=== PATIENT | female | born 1970 | race Caucasian/White ===

== ENCOUNTER → 2017-03-26 | Outpatient (CLI) | payer BC ==
[2017-03-26 14:20] LABS: BLOOD UREA NITROGEN 10 mg/dl (7-18); BUN/CREATININE RATIO 12.1 (10-20); CARBON DIOXIDE 23 mmol/L (21-32); CHLORIDE 104 mmol/L (98-107); CREATININE 0.86 mg/dl (0.60-1.20); GLUCOSE 138 mg/dl (70-99); POTASSIUM 4.3 mmol/L (3.5-5.1); SODIUM 138 mmol/L (136-145)
[2017-03-26 14:22] LABS: CHOLESTEROL 213 mg/dl (0-200); CHOLESTEROL/HDL RATIO 4.3; HDL CHOLESTEROL 49 mg/dl; TRIGLYCERIDES 240 mg/dl (0-150); VERY LOW DENSITY LIPOPROT CALC 48 mg/dl
== END | disposition home or self-care (01) ==
LOC: C.LABPVFM 10:16
PROVIDERS: ATTEND Nurse Practitioner
DX: C68.0 Malignant neoplasm of urethra (principal); E66.9 Obesity, unspecified; Z13.220 Encounter for screening for lipoid disorders

== ENCOUNTER 2020-07-25 15:36 | Inpatient (IN) ==
--- NOTE | 2020-07-25 15:57 | Emergency Department Note ---
History of Present Illness General Chief complaint: Toe Injury/Pain Stated complaint: INFECTED MIDDLE TOE ON RIGHT FOOT Time Seen by Provider: 07/25/20 15:44 History of Present Illness Maximum Pain Intensity: 8 This is a 49-year-old otherwise healthy female that presents to the emergency department via private vehicle with complaints "infected middle toe and right foot". The patient notes that about 6 weeks ago she injured the right third toe noting that the toenail was curled and created a break in the integument to the distalmost aspect of the right third digit. She states that she trimmed the area and noted that about 3 days ago erythema began within the toe. She then notes that it was quite painful particular with walking and pressure. Then starting this past the erythema began and then yesterday presented to [facility] where she notes that an x-ray was performed and she was prescribed antibiotics. These were doxycycline and Augmentin. She has had 3 doses of both so far. She is now concerned because today there is erythema tracking proximal from the toe into the foot and now into the right aguiar. At rest pain is a 0 but with walking pain is an 8/10. She denies any other pertinent past medical history, surgeries or allergies. In addition, the patient notes that she is prescribed metformin but has not been taking this as the prescription ran out and secondary to COVID-19 pandemic has not had a follow-up. Home Medications Medication Instructions Recorded Confirmed Type No Known Home Medications 07/25/20 07/25/20 History Allergies Allergy/AdvReac Type Severity Reaction Status Date / Time No Known Drug Allergies Allergy Unknown Verified 07/25/20 16:55 Past Med/Surg History Medical History Type 2 diabetes mellitus Surgical History History of conization of cervix Status post hysteroscopic ablation of endometrium Family History Mother Dyslipidemia Heart disease Hypertension Father Dyslipidemia Heart disease Hypertension Myocardial infarction Other Breast cancer Colorectal cancer Depression Diabetes Denies family history of Ovarian cancer Social History Smoking Status: Never smoker Hx Alcohol Use: No Hx Substance Use: No Preferred Language: [place] Communication Ability: Effective Tobacco Dipper Required: No Beliefs That Will Affect Care: None marital status: Current Living Situation: Spouse current occupational status: employed Feels Safe at Home: Yes Safety Concerns: Feels Safe At This Time caffeine: Yes during the past year weight has: remained stable Dental Care, Regularly: No Seatbelt Use: always Sunscreen Use: Yes Assistive Devices: Glasses Review of Systems A total of 10 systems reviewed and were otherwise negative Physical Exam Vital Signs Vital Signs - 24 hr 07/25/20 15:39 07/25/20 17:51 07/25/20 19:29 Temperature 36.3 C L Temperature Source Temporal Artery Scan Pulse Rate 110 H Pulse Rate [Right Finger] 88 77 Respiratory Rate 20 19 19 Respiratory Effort / Characteristics Non-Labored Non-Labored Respiratory Depth Normal Normal Blood Pressure 198/105 H Blood Pressure [Right Arm] 201/107 H 198/118 H Blood Pressure Mean 136 Blood Pressure Mean [Right Arm] 138 144 Blood Pressure Position [Right Arm] Sitting Pulse Oximetry 98 98 98 Oxygen Delivery Method Room Air Room Air Room Air Sepsis Recent Fever Within 48 Hours No Sepsis New/Unexplained Change in Mental Status No Sepsis Action Taken by Nursing No Action Required VITAL SIGNS - Vital signs and nursing notes were reviewed. Hypertensive, tachycardic, otherwise stable. GENERAL -49-year-old female appearing her stated age who is in no acute distress. Communicates well with provider and answers questions appropriately. SKIN - R 3rd toe erythema, and edema diffusely. Erythema/lymphangitic streaking tracking proximally into the right anterior aguiar. LUNGS - Chest wall symmetric without accessory muscle use, intercostals retractions, or central cyanosis. Normal vesicular breath sounds CTA B/L. No wheezes, rales, or rhonchi appreciated. CARDIAC - RRR with S1/S2. No murmur, rubs, or gallops appreciated. EXTREMITIES - No clubbing or peripheral cyanosis. +5/5 strength noted in UE/LE bilaterally. NEUROLOGIC - Cranial nerves II through XII grossly intact. PSYCH - A&O, and cooperates fully with examiner. Pt is very pleasant and interacts well with examiner. Course Administered Medications Acetaminophen (Acetaminophen 325 Mg Tab) 650 mg PO Q6H PRN PRN Reason: Pain & Pre PT Stop: 08/25/20 01:35 Last Admin: 07/26/20 04:58 Dose: 650 mg Documented by: [id number] Piperacillin Sod/Tazobactam (Sod 4.5 gm/ Dextrose) 120 mls @ 30 mls/hr IV Q8H [facility]; Protocol Stop: 08/01/20 21:59 Last Admin: 07/26/20 14:29 Dose: 30 mls/hr Documented by: [id number] Infusion: 07/26/20 09:50 Dose: 0 mls/hr Documented by: [id number] Admin: 07/26/20 05:50 Dose: 30 mls/hr Documented by: [id number] Infusion: 07/26/20 02:12 Dose: 0 mls/hr Documented by: [id number] Admin: 07/25/20 22:12 Dose: 30 mls/hr Documented by: [id number] Insulin Aspart (Insulin Aspart 100 Units/Ml 3 Ml Pen) 0 units SC ACHS [facility] Stop: 08/24/20 21:59 Last Admin: 07/26/20 13:02 Dose: 3 units Documented by: [id number] Cosigned by: [id number] Admin: 07/26/20 08:34 Dose: 5 units Documented by: [id number] Cosigned by: [id number] Admin: 07/25/20 22:08 Dose: Not Given Documented by: [id number] Cosigned by: [id number] Lisinopril (Lisinopril 20 Mg Tab) [facility] [place]: 08/25/20 08:59 Last Admin: 07/26/20 08:33 Dose: 20 mg Documented by: [id number] Tramadol HCl (Tramadol Hcl 50 Mg Tablet) 100 mg PO Q4H PRN PRN Reason: SEVERE Pain (7,8,9,10) Stop: 08/25/20 01:35 Last Admin: 07/26/20 05:51 Dose: 100 mg Documented by: [id number] Admin: 07/26/20 01:50 Dose: 100 mg Documented by: [id number] Discontinued Medications Daptomycin 350 mg/ Syringe 7 mls @ 3.5 mls/min IV NOW ONE; Protocol Stop: 07/25/20 17:08 Last Admin: 07/25/20 17:49 Dose: 3.5 mls/min Documented by: [id number] Piperacillin Sod/Tazobactam Sod (Zosyn) 4.5 gm in 120 mls @ 240 mls/hr IV NOW ONE Stop: 07/25/20 17:36 Last Infusion: 07/25/20 17:53 Dose: 0 mls/hr Documented by: [id number] Admin: 07/25/20 17:12 Dose: 240 mls/hr Documented by: [id number] Sodium Chloride (Nss 1000ml) 1,000 mls @ 999 mls/hr IV .Q1H1M [id number] Stop: 07/25/20 18:30 Last Infusion: 07/25/20 19:45 Dose: 0 mls/hr Documented by: [id number] Admin: 07/25/20 17:49 Dose: 999 mls/hr Documented by: [id number] Medical Decision Making Laboratory Data Result diagrams: 07/26/20 05:56 07/26/20 05:56 Lab Results 07/25/20 07/25/20 07/25/20 Range/Units 16:10 16:10 16:10 WBC 9.72 (4.8-10.8) K/uL RBC 4.45 (4.2-5.4) M/uL Hgb 14.1 (12.0-16.0) g/dL Hct 41.9 (37-47) % MCV 94.2 (80-100) fL MCH 31.7 (25-34) pg MCHC 33.7 (32-36) g/dL RDW Std Deviation 48.4 H (36.4-46.3) fL RDW Coeff of Manjeet 13.9 (11.5-14.5) % Plt Count 202 (130-400) K/uL MPV 10.6 H (7.4-10.4) fL Immature Gran % (Auto) 0.2 % Neut % (Auto) 75.3 % Lymph % (Auto) 18.5 % Caswell % (Auto) 5.5 % Eos % (Auto) 0.4 % Baso % (Auto) 0.1 % Neut # (Auto) 7.32 H (1.4-6.5) K/uL Lymph # (Auto) 1.80 (1.2-3.4) K/uL Caswell # (Auto) 0.53 (0.11-0.59) K/uL Eos # (Auto) 0.04 (0-0.5) K/uL Baso # (Auto) 0.01 (0-0.2) K/uL Immature Gran # (Auto) 0.02 (0.00-0.02) K/uL ESR (0-21) mm/hr Sodium 135 L (136-145) mmol/L Potassium 4.0 (3.5-5.1) mmol/L Chloride 101 (98-107) mmol/L Carbon Dioxide 26 (21-32) mmol/L Anion Gap 8.0 (3-11) BUN 11 (7-18) mg/dl Creatinine 0.92 (0.6-1.2) mg/dl Est Cr Clr Drug Dosing 97.1 ml/min Est GFR ( Amer) 83.6 Est GFR (Non-Af Amer) 72.1 BUN/Creatinine Ratio 12.3 (10-20) Glucose 266 H (70-99) mg/dl Lactate 2.4 H* (0.4-2.0) mmol/L Calcium 9.4 (8.5-10.1) mg/dl Total Bilirubin 0.5 (0.2-1) mg/dl AST 24 (15-37) U/L ALT 36 (12-78) U/L Alkaline Phosphatase 127 H (45-117) U/L C-Reactive Protein 5.43 H (0-0.29) mg/dl Total Protein 7.8 (6.4-8.2) gm/dl Albumin 3.5 (3.4-5.0) gm/dl Globulin 4.3 H (2.5-4.0) gm/dl Albumin/Globulin Ratio 0.8 L (0.9-2) Procalcitonin (0-0.5) ng/ml COVID-19 Eval Order SARS-CoV-2, RNA, NAAT (NEGATIVE) 07/25/20 07/25/20 07/25/20 Range/Units 16:10 16:10 17:45 WBC (4.8-10.8) K/uL RBC (4.2-5.4) M/uL Hgb (12.0-16.0) g/dL Hct (37-47) % MCV (80-100) fL MCH (25-34) pg MCHC (32-36) g/dL RDW Std Deviation (36.4-46.3) fL RDW Coeff of Manjeet (11.5-14.5) % Plt Count (130-400) K/uL MPV (7.4-10.4) fL Immature Gran % (Auto) % Neut % (Auto) % Lymph % (Auto) % Caswell % (Auto) % Eos % (Auto) % Baso % (Auto) % Neut # (Auto) (1.4-6.5) K/uL Lymph # (Auto) (1.2-3.4) K/uL Caswell # (Auto) (0.11-0.59) K/uL Eos # (Auto) (0-0.5) K/uL Baso # (Auto) (0-0.2) K/uL Immature Gran # (Auto) (0.00-0.02) K/uL ESR 37 H (0-21) mm/hr Sodium (136-145) mmol/L Potassium (3.5-5.1) mmol/L Chloride (98-107) mmol/L Carbon Dioxide (21-32) mmol/L Anion Gap (3-11) BUN (7-18) mg/dl Creatinine (0.6-1.2) mg/dl Est Cr Clr Drug Dosing ml/min Est GFR ( Amer) Est GFR (Non-Af Amer) BUN/Creatinine Ratio (10-20) Glucose (70-99) mg/dl Lactate (0.4-2.0) mmol/L Calcium (8.5-10.1) mg/dl Total Bilirubin (0.2-1) mg/dl AST (15-37) U/L ALT (12-78) U/L Alkaline Phosphatase (45-117) U/L C-Reactive Protein (0-0.29) mg/dl Total Protein (6.4-8.2) gm/dl Albumin (3.4-5.0) gm/dl Globulin (2.5-4.0) gm/dl Albumin/Globulin Ratio (0.9-2) Procalcitonin 0.06 (0-0.5) ng/ml COVID-19 Eval [facility] SARS-CoV-2, RNA, NAAT (NEGATIVE) 07/25/20 07/25/20 Range/Units 17:45 17:50 WBC (4.8-10.8) K/uL RBC (4.2-5.4) M/uL Hgb (12.0-16.0) g/dL Hct (37-47) % MCV (80-100) fL MCH (25-34) pg MCHC (32-36) g/dL RDW Std Deviation (36.4-46.3) fL RDW Coeff of Manjeet (11.5-14.5) % Plt Count (130-400) K/uL MPV (7.4-10.4) fL Immature Gran % (Auto) % Neut % (Auto) % Lymph % (Auto) % Caswell % (Auto) % Eos % (Auto) % Baso % (Auto) % Neut # (Auto) (1.4-6.5) K/uL Lymph # (Auto) (1.2-3.4) K/uL Caswell # (Auto) (0.11-0.59) K/uL Eos # (Auto) (0-0.5) K/uL Baso # (Auto) (0-0.2) K/uL Immature Gran # (Auto) (0.00-0.02) K/uL ESR (0-21) mm/hr Sodium (136-145) mmol/L Potassium (3.5-5.1) mmol/L Chloride (98-107) mmol/L Carbon Dioxide (21-32) mmol/L Anion Gap (3-11) BUN (7-18) mg/dl Creatinine (0.6-1.2) mg/dl Est Cr Clr Drug Dosing ml/min Est GFR ( Amer) Est GFR (Non-Af Amer) BUN/Creatinine Ratio (10-20) Glucose (70-99) mg/dl Lactate 2.1 H* (0.4-2.0) mmol/L Calcium (8.5-10.1) mg/dl Total Bilirubin (0.2-1) mg/dl AST (15-37) U/L ALT (12-78) U/L Alkaline Phosphatase (45-117) U/L C-Reactive Protein (0-0.29) mg/dl Total Protein (6.4-8.2) gm/dl Albumin (3.4-5.0) gm/dl Globulin (2.5-4.0) gm/dl Albumin/Globulin Ratio (0.9-2) Procalcitonin (0-0.5) ng/ml COVID-19 Eval Order SARS-CoV-2, RNA, NAAT NEGATIVE (NEGATIVE) Imaging Data Radiologist's Impression: Right third toe 4 views CLINICAL HISTORY: R 3rd toe infection COMPARISON: None. DISCUSSION: No acute fractures are visualized. There is no gas within the soft tissues. There is no conventional radiographic evidence of acute osteomyelitis. There is mild soft tissue edema. IMPRESSION: 1. No fractures or dislocations identified 2. No conventional radiographic evidence of acute osteomyelitis. ACT 112: Negative or not required by law. Electronically signed by: Bandar Pinto M.D. 07/25/2020 5:43 PM MDM Narrative Patient was seen and evaluated as above in room a11b. Review was performed of nursing notes and vital signs. After obtaining a thorough history and physical examination the above work up was performed. Patient presents to us today with what appears to be right third toe cellulitis. Unfortunately it is now tracking proximally into the foot and anterior aguiar in regard to lymphangitic streaking. Options of care were discussed with the patient. IV access was established. Labs were drawn. White blood cell count within normal limits. No anemia. There is mild neutrophil elevation at 7.32. There is ESR and CRP elevation noted. There is also hyperglycemia with glucose of 266. Pro-Hermann within normal limits. Covid testing negative for suspected admission requirement. Given the progression of symptoms, now with lymphangitic streaking it is felt that further evaluation and management is warranted in the inpatient setting. She has been on antibiotics for total of 3 doses thus far of each. I ordered empiric antibiotics to include that of Zosyn and daptomycin. Given the likely etiology of this secondary to a wound on the distalmost aspect of the right third toe in the setting of hyperglycemia I did find it reasonable to discuss this with staff life manager, Dr. Ang. He will see the patient here while she is admitted. In addition to the above work-up, adding an x-ray was recommended and this was ordered and results are as above. While in the department, I personally reevaluated the patient and she was resting comfortably. Pt.made aware of results and will be admitted by the medicine team for further evaluation and management. Pt. happy with plan of care. In the evaluation and treatment of this patient the following differential diagnoses were entertained: Cellulitis, necrotizing fasciitis, gout, hyperglycemia, among others. Impression & Plan Cellulitis of toe of right foot, Hyperglycemia Discharge Plan Visit Data Chief Complaint: Toe Injury/Pain Stated Complaint: INFECTED MIDDLE TOE ON RIGHT FOOT ED Provider: Raul Perez ED Midlevel Provider: David Johnson Discharge Problem: Cellulitis of toe of right foot, Hyperglycemia Patient Disposition: Admitted As Inpatient Discharge Instructions Interventions: ED Discharge Assessment Last Done: 07/25/20 20:45
[2020-07-25 16:22] LABS: Basophils # (auto) 0.01 K/uL (0-0.2); Basophils % (auto) 0.1 %; Eosinophils # (auto) 0.04 K/uL (0-0.5); Eosinophils % (auto) 0.4 %; Hematocrit (blood only) 41.9 % (37-47); Hemoglobin 14.1 g/dL (12.0-16.0); Immature Granulocytes # (auto) 0.02 K/uL (0.00-0.02); Immature Granulocytes % (auto) 0.2 %; Lymphocytes % (auto) 18.5 %; Mean Corpuscular Hemoglobin 31.7 pg (25-34); Mean Corpuscular Hgb Conc 33.7 g/dL (32-36); Mean Corpuscular Volume 94.2 fL (80-100); Mean Platelet Volume 10.6 fL (7.4-10.4); Monocytes # (auto) 0.53 K/uL (0.11-0.59); Monocytes % (auto) 5.5 %; Neutrophils # (auto) 7.32 K/uL (1.4-6.5); Neutrophils % (auto) 75.3 %; Platelet Count 202 K/uL (130-400); RDW Coefficient of Variation 13.9 % (11.5-14.5); RDW Standard Deviation 48.4 fL (36.4-46.3); Red Blood Count 4.45 M/uL (4.2-5.4); White Blood Count 9.72 K/uL (4.8-10.8)
[2020-07-25 16:37] LABS: Albumin Level 3.5 gm/dl (3.4-5.0); BUN Creatinine Ratio 12.3 (10-20); Calcium 9.4 mg/dl (8.5-10.1); Creatinine Clr Calc Pharmacy 97.1 ml/min; Est GFR (African American) 83.6; Est GFR (Non-African American) 72.1
[2020-07-25 16:40] LABS: Albumin Globulin Ratio 0.8 (0.9-2); Bilirubin,Total 0.5 mg/dl (0.2-1); C Reactive Protein 5.43 mg/dl (0-0.29); Globulin 4.3 gm/dl (2.5-4.0); Total Protein 7.8 gm/dl (6.4-8.2)
[2020-07-25] MEDS ORDERED: DAPTOmycin 350 MG in SYRINGE 0 ML IV ONE (17:07)
[2020-07-25] MEDS ORDERED: PIPERACILL/TAZOBAC CONSULT ACTIVE PRN (17:07)
[2020-07-25] MEDS ORDERED: PIPERACILLIN/TAZOBACTAM 4.5 GM/120 ML BAG IV ONE (17:07)
[2020-07-25] MEDS ORDERED: SODIUM CHLORIDE 0.9% 1000ML 1,000 ML IV SCH (17:30)
--- NOTE | 2020-07-25 17:45 | XRay Report ---
Right third toe 4 views CLINICAL HISTORY: R 3rd toe infection COMPARISON: None. DISCUSSION: No acute fractures are visualized. There is no gas within the soft tissues. There is no c onventional radiographic evidence of acute osteomyelitis. There is mild soft tissue edema. IMPRESSION: 1. No fractures or dislocations identified 2. No conventional radiographic evidence of acute osteomyelitis. ACT 112: Negative or not required by law. Electronically signed by: Bandar Pinto M.D. 07/25/2020 5:43 PM
--- NOTE | 2020-07-25 18:27 | History & Physical Report ---
Date of Service July 25, 2020 Assessment & Plan (1) Diabetic foot ulcer associated with type 2 diabetes mellitus: Infected diabetic foot ulcer - Continue with Daptomycin and Zosyn - Cultures pending - Biomarkers for antibiotic weaning - no overt signs of systemic sepsis. (2) Vitamin D deficiency: No acute needs - Patient only on supplementation during winter months, and skipped supplementation this year due to COVID - Vitamin D level in morning. (3) Hirsutism: No acute needs History of Present Illness Primary Care Provider: YANI Rousseau 49 YOF with past medical history of strep pharyngitis, Hirsutism, Vit D deficiency, DMII, hemorrhoids. Patient comes to the emergency room for right 3rd toe infection. Patient states that about 6 weeks ago she noted that her toenail was grown over and digging into the top of her toe and created an ulcer, she clipped the toenail and the ulcer. On Sun, she noted that her toe started to get red and painful over the ulceration, the redness and swelling to the toe increased and stared to track caudally yesterday. She went to [facility] had X-ray performed and was given oral antibiotics (doxy and Augmentin). She denies fevers or chills or other symptoms of systemic infection. The redness tracks to about ankle and is just center of the foot. The 3rd toe itself is moderately erythematous but only painful over the ulceration and when putting pressure directly on it. Patient will be brought in for IV antibiotics, blood culture and biomarkers. Allergies Allergy/AdvReac Type Severity Reaction Status Date / Time No Known Drug Allergies Allergy Unknown Verified 07/25/20 16:55 Home Medications Medication Instructions Recorded Confirmed Type No Known Home Medications 07/25/20 07/25/20 History Past Med/Surg History Medical History Type 2 diabetes mellitus Surgical History History of conization of cervix Status post hysteroscopic ablation of endometrium Family History (Updated 07/25/20 @ 18:17 by YANI Pennington) Mother Dyslipidemia Heart disease Hypertension Father Dyslipidemia Heart disease Hypertension Myocardial infarction Other Breast cancer Colorectal cancer Depression Diabetes Denies family history of Ovarian cancer Social History Smoking Status: Never smoker Hx Alcohol Use: No Hx Substance Use: No Preferred Language: Citizen Of [place] marital status: Current Living Situation: Spouse current occupational status: employed Feels Safe at Home: Yes caffeine: Yes during the past year weight has: remained stable Dental Care, Regularly: No Seatbelt Use: always Sunscreen Use: Yes Review of Systems Review of Systems: REVIEW OF SYSTEMS: Constitutional: No fever, sweats or chills Eyes: No diplopia, no worsening or blurred vision ENT: normal hearing, no trouble swallowing Respiratory: No cough, sputum, dyspnea at rest or on exertion Cardiovascular: No chest pain, tightness or palpitations Abdomen: No pain, nausea, vomiting, diarrhea or constipation Musculoskeletal: per HPI otherwise No joint pain, calf pain, swelling Neurologic: No weakness, numbness/tingling, or balance problems Psychiatric: No anxiety or depression Skin: No rash or itch Physical Exam Physical Exam: PHYSICAL EXAM: General: awake, alert, no apparent distress Head: Normocephalic, atraumatic ENT: PERRL, EOMI, no pharyngeal exudate, mucous membranes moist Neuro: AAO x 3, speech clear and appropriate, strength intact bilaterally 5/5, sensation intact and equal all extremities, no pronator drift Chest: equal rise and fall of the chest, no accessory muscle use, no heaves or thrills, Clear to auscultation, on room air, Cardiac: Regular rate and rhythm, telemetry reviewed, skin warm dry, cap refill <3 seconds, peripheral pulses +2 no JVD, no murmur, no JVD, no edema GI: NABS x 4 quadrants, soft, nontender to palpation, no rebound, guarding or tenderness : Spontaneously voiding, no pain, no CVA tenderness, Extremities: Right 3rd toe, red and swollen, no other edema to foot or surrounding toes, there is mild streaking caudally to the ankle. No calf pain or swelling. Normal inspection, no peripheral edema or erythema, calfs nontender to palpation. Psych: Normal mood and affect Skin: no rash or erythema Results & Data Results & Data ([facility]) Vital Signs (Past 12 Hours) Vital Signs Temp Pulse Pulse Resp BP BP Pulse Ox 07/25/20 17:51 88 19 201/107 H 98 02/14/21 15:39 36.3 C L 110 H 20 198/105 H 98 Laboratory Results Abnormal lab results 07/25/20 07/25/20 07/25/20 Range/Units 16:10 16:10 16:10 RDW Std Deviation 48.4 H (36.4-46.3) fL MPV 10.6 H (7.4-10.4) fL Neut # (Auto) 7.32 H (1.4-6.5) K/uL ESR (0-21) mm/hr Sodium 135 L (136-145) mmol/L Glucose 266 H (70-99) mg/dl Lactate 2.4 H* (0.4-2.0) mmol/L Alkaline Phosphatase 127 H (45-117) U/L C-Reactive Protein 5.43 H (0-0.29) mg/dl Globulin 4.3 H (2.5-4.0) gm/dl Albumin/Globulin Ratio 0.8 L (0.9-2) 07/25/20 Range/Units 16:10 RDW Std Deviation (36.4-46.3) fL MPV (7.4-10.4) fL Neut # (Auto) (1.4-6.5) K/uL ESR 37 H (0-21) mm/hr Sodium (136-145) mmol/L Glucose (70-99) mg/dl Lactate (0.4-2.0) mmol/L Alkaline Phosphatase (45-117) U/L C-Reactive Protein (0-0.29) mg/dl Globulin (2.5-4.0) gm/dl Albumin/Globulin Ratio (0.9-2) Diagnostic Findings Right third toe 4 views CLINICAL HISTORY: R 3rd toe infection COMPARISON: None. DISCUSSION: No acute fractures are visualized. There is no gas within the soft tissues. There is no conventional radiographic evidence of acute osteomyelitis. There is mild soft tissue edema. IMPRESSION: 1. No fractures or dislocations identified 2. No conventional radiographic evidence of acute osteomyelitis. Medications Administered Right third toe 4 views CLINICAL HISTORY: R 3rd toe infection COMPARISON: None. DISCUSSION: No acute fractures are visualized. There is no gas within the soft tissues. There is no conventional radiographic evidence of acute osteomyelitis. There is mild soft tissue edema. IMPRESSION: 1. No fractures or dislocations identified 2. No conventional radiographic evidence of acute osteomyelitis. Supervising Physician Co-Signing Physician Notes Patient was seen and examined independently I discussed the case with Jevon LOMELI I reviewed pertinent past medical social family history and also the plan of care and agree with the plan of care. Patient presents is a morbidly obese noncompliant diabetic was been off her Metformin for least a year with an diabetic foot infection with an erythematous right 3rd toe with a corn on the and. She claims this is from abrasions due to abnormal growth of her nail. She was placed on oral antibiotics 24 hours prior to admission without much help. She comes to our facility with a very erythematous consult toe infection. Concerns for her lack of compliance with her diabetic medication certainly does not help this improve. Patient will have blood cultures undertaken a podiatry consult continue on intravenous antibiotics. Any exceptions will be noted below PG Care Time/CCT Total # of Minutes Spent Total Time Spent with Patient: Total time spent is greater than 50% in coordination of care (as documented) at patient's floor/unit and/or counseling patient: Coding Level of Care Code 84143 Initial Inpt Care Lvl 3 Diagnoses Diabetic foot ulcer associated with type 2 diabetes mellitus E11.621; L97.509 Vitamin D deficiency E55.9 Hirsutism L68.0
[2020-07-25] MEDS ORDERED: GLUCOSE 40% GEL 15 GM TUBE PO PRN (21:28)
[2020-07-25] MEDS ORDERED: GLUCOSE 10 TABS/TUBE PO PRN (21:28)
[2020-07-25] MEDS ORDERED: GLUCAGON FOR INJ 1 MG VIAL SQ PRN (21:28)
[2020-07-25] MEDS ORDERED: DEXTROSE 50% 50 ML SYRINGE IV PRN (21:28)
[2020-07-25] MEDS ORDERED: CARBOHYDRATES FOR HYPOGLYCEMIA PO PRN (21:28)
[2020-07-25] MEDS: INSULIN ASPART 100 UNITS/ML 3 ML PEN SC SCH (22:08)
[2020-07-25] MEDS: PIPERACILLIN/TAZOBACTAM 4.5 GM in DEXTROSE 5% 100 ML IV SCH (22:12)
[2020-07-26] MEDS ORDERED: traMADol HCL 50 MG TABLET PO PRN (01:36)
[2020-07-26] MEDS: traMADol HCL 50 MG TABLET PO PRN ×4 (01:50→21:27)
[2020-07-26] MEDS: ACETAMINOPHEN 325 MG TAB PO PRN (04:58)
[2020-07-26] MEDS: PIPERACILLIN/TAZOBACTAM 4.5 GM in DEXTROSE 5% 100 ML IV SCH ×3 (05:50→21:27)
[2020-07-26 06:26] LABS: Basophils # (auto) 0.01 K/uL (0-0.2); Basophils % (auto) 0.1 %; Eosinophils # (auto) 0.04 K/uL (0-0.5); Eosinophils % (auto) 0.4 %; Hemoglobin 13.2 g/dL (12.0-16.0); Immature Granulocytes # (auto) 0.02 K/uL (0.00-0.02); Immature Granulocytes % (auto) 0.2 %; Lymphocytes # (auto) 1.45 K/uL (1.2-3.4); Lymphocytes % (auto) 16.1 %; Mean Corpuscular Hemoglobin 31.7 pg (25-34); Mean Corpuscular Hgb Conc 33.8 g/dL (32-36); Mean Corpuscular Volume 93.5 fL (80-100); Mean Platelet Volume 10.8 fL (7.4-10.4); Monocytes # (auto) 0.41 K/uL (0.11-0.59); Monocytes % (auto) 4.5 %; Neutrophils % (auto) 78.7 %; Platelet Count 210 K/uL (130-400); RDW Coefficient of Variation 13.9 % (11.5-14.5); RDW Standard Deviation 47.7 fL (36.4-46.3); Red Blood Count 4.17 M/uL (4.2-5.4); White Blood Count 9.03 K/uL (4.8-10.8)
[2020-07-26 06:46] LABS: Estimated Average Glucose 171 mg/dl; Hemoglobin A1C 7.6 % (4.5-5.6)
[2020-07-26 06:56] LABS: BUN Creatinine Ratio 12.8 (10-20); Calcium 8.5 mg/dl (8.5-10.1); Creatinine Clr Calc Pharmacy 121.3 ml/min; Est GFR (African American) 110.5; Est GFR (Non-African American) 95.4; Magnesium 1.9 mg/dl (1.8-2.4); Potassium 4.1 mmol/L (3.5-5.1)
[2020-07-26] MEDS ORDERED: INFLUENZA VIRUS QUAD VACCINE 0.5 ML SYR IM ONE (08:00)
[2020-07-26] MEDS ORDERED: INFLUENZA ADMINISTRATION CHARGE ONE (08:00)
--- NOTE | 2020-07-26 08:19 | Podiatry Consultation ---
Date of Consultation July 26, 2020 History of Present Illness Attending Physician: Dimitri Canales DO History of Present Illness Patient is a type II diabetic 49 year old female seen at bedside for right foot diabetic foot infection. Patient has a past medical history of strep pharyngitis, Hirsutism, Vit D deficiency, DMII, hemorrhoids. Patient presented to the emergency room for right 3rd toe infection. Patient states that about 6 weeks ago she noted that her toenail was grown over and digging into the top of her toe and created an ulcer, she clipped the toenail and the ulcer. On Sun, she noted that her toe started to get red and painful over the ulceration, the redness and swelling to the toe increased and stared to track caudally yesterday. She went to [facility] had X-ray performed and was given oral antibiotics (doxy and Augmentin). She denies fevers or chills or other symptoms of systemic infection. The redness tracks to about ankle and is just center of the foot. The 3rd toe itself is moderately erythematous but only painful over the ulceration and when putting pressure directly on it. Patient will be brought in for IV antibiotics, blood culture and biomarkers. Allergies Allergy/AdvReac Type Severity Reaction Status Date / Time No Known Drug Allergies Allergy Unknown Verified 07/25/20 16:55 Home Medications Medication Instructions Recorded Confirmed Type No Known Home Medications 07/25/20 07/25/20 History Patient History Medical History Type 2 diabetes mellitus Surgical History History of conization of cervix Status post hysteroscopic ablation of endometrium Family History Mother Dyslipidemia Heart disease Hypertension Father Dyslipidemia Heart disease Hypertension Myocardial infarction Other Breast cancer Colorectal cancer Depression Diabetes Denies family history of Ovarian cancer Social History Smoking Status: Never smoker Hx Alcohol Use: No Hx Substance Use: No Preferred Language: Macanese Communication Ability: Effective Supportability Engineer Required: No Beliefs That Will Affect Care: None marital status: Current Living Situation: Spouse current occupational status: employed Feels Safe at Home: Yes Safety Concerns: Feels Safe At This Time caffeine: Yes during the past year weight has: remained stable Dental Care, Regularly: No Seatbelt Use: always Sunscreen Use: Yes Assistive Devices: Glasses Review of Systems Review of Systems: All systems reviewed & are unremarkable except as noted in HPI & below Constitutional: as per Subjective / HPI Eyes: as per Subjective / HPI Ear, Nose, Mouth, Throat: as per Subjective / HPI Respiratory: as per Subjective / HPI Cardiovascular: as per Subjective / HPI Gastrointestinal: as per Subjective / HPI Genitourinary: as per Subjective / HPI Musculoskeletal: as per Subjective / HPI Integumentary: + skin ulcer Neurologic: + numbness Psychiatric: as per Subjective / HPI Endocrine: as per Subjective / HPI Hematologic / Lymphatic: as per Subjective / HPI Allergy / Immunological: as per Subjective / HPI Physical Exam Physical Exam: Vascu: pedal pulses palpable. 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 RIght third toe edema and erythema MSK: hammertoe deformities bilateral lesser toes. Pain on palpation to left third toe Integument: Hyperkeratotic lesion left third toe secondary to weight bearing forces and digtial contractures upon debridement purulence evident. Constitutional: patient denies symptoms Pschy: Normal affect and demeanor Neuro: Epicritic sensation diminished Results & Data ([facility]) Vital Signs (Past 12 Hours) Vital Signs Temp Pulse Resp BP BP Pulse Ox 07/26/20 07:25 36.6 C 91 H 18 181/119 H 96 07/25/20 23:11 36.6 C 83 14 170/78 H 99 07/25/20 21:28 36.5 C 86 16 183/100 H 100 07/25/20 20:40 86 18 200/109 H 98
[2020-07-26] MEDS: lisinopril 20 MG TAB PO SCH (08:33)
[2020-07-26] MEDS: INSULIN ASPART 100 UNITS/ML 3 ML PEN SC SCH ×4 (08:34→21:23)
--- NOTE | 2020-07-26 13:05 | Hospitalist Progress Note ---
Date of Service July 26, 2020 Assessment & Plan (1) Diabetic foot ulcer associated with type 2 diabetes mellitus: Infected diabetic foot ulcer - Continue with Daptomycin and Zosyn, follow up on wound cultures obtained by podiatry incision and drainage performed follow up with podiatry in clinic anticipate changing to PO antibiotics in 1-2 days, will d/w podiatry WBC normal, no fever, ESR and CRP elevated - no overt signs of systemic sepsis. (2) Vitamin D deficiency: No acute needs - Patient only on supplementation during winter months, and skipped supplementation this year due to COVID - Vitamin D level low at 18 place on Vitamin D 3 1000 units qAM (3) Hirsutism: No acute needs (4) Elevated blood pressure readin/110's, she attributes to stress however, diastolic would not go up with stress will start on lisinopril 20mg daily, follow response Admission and Anticipated Discharge Date Admission Date: July 25, 2020 Subjective patient feeling better after podiatry performed incision and drainage, purulent drainage was sent for culture no fever/chills, no chest pain, no cough, no GI symptoms she admits to a lot of fatigue, difficult to sleep in the hospital reviewed labs, WBC normal, Cr normal, ESR and CRP both elevated, foot x-ray from yesterday without evidence of osteomyelitis discussed that we will plan to follow up on cultures, d/w podiatry about how long they want IV antibiotics discussed elevated blood pressure, she says her father on Jul 13 and she has been under a lot of stress however, diastolic pressure up, this would not go up with stress with her diabetes, MICHAEL inh would benefit, she agrees to lisinopril Review of Systems Review of Systems: All systems reviewed & are unremarkable except as noted in Subjective Musculoskeletal: + joint pain (right 3rd toe pain) Integumentary: + erythema (right 3rd toe, top of foot) Physical Exam Constitutional: WD/WN, vitals as above + overweight; no acute distress Neck: trachea midline, no thyromegaly Respiratory: normal respiratory effort, lungs clear to auscultation Cardiovascular: RRR, no murmur, no edema Gastrointestinal (Abdomen): normal bowel sounds, soft, nontender, no hepatosplenomegaly Musculoskeletal: no cyanosis or clubbing, extremities motor strength 5/5 Skin: + dry skin and + erythema (right 3rd toe, dorsal surface foot) Neurologic: patellar DTR's 2+ bilat, sensation intact and PERRL, EOMI, accommodation nl, no face palsy, no dysarthria Psychiatric: A+Ox3, euthymic affect Lymphatic: no cervical or axillary lymphadenopathy Results & Data Results & Data ([facility]) Vital Signs (Past 12 Hours) Vital Signs Temp Pulse Resp BP Pulse Ox 07/26/20 07:25 36.6 C 91 H 18 181/119 H 96 Laboratory Results Laboratory Results - last 24 hr 07/25/20 07/25/20 07/25/20 16:10 16:10 16:10 WBC 9.72 RBC 4.45 Hgb 14.1 Hct 41.9 MCV 94.2 MCH 31.7 MCHC 33.7 RDW Std Deviation 48.4 H RDW Coeff of Manjeet 13.9 Plt Count 202 MPV 10.6 H Immature Gran % (Auto) 0.2 Neut % (Auto) 75.3 Lymph % (Auto) 18.5 [place] % (Auto) 5.5 Eos % (Auto) 0.4 Baso % (Auto) 0.1 Neut # (Auto) 7.32 H Lymph # (Auto) 1.80 [place] # (Auto) 0.53 Eos # (Auto) 0.04 Baso # (Auto) 0.01 Immature Gran # (Auto) 0.02 ESR Sodium 135 L Potassium 4.0 Chloride 101 Carbon Dioxide 26 Anion Gap 8.0 BUN 11 Creatinine 0.92 Est Cr Clr Drug Dosing 97.1 Est GFR ( Amer) 83.6 Est GFR (Non-Af Amer) 72.1 BUN/Creatinine Ratio 12.3 Glucose 266 H POC Glucose Estimat Average Glucose Hemoglobin A1c Lactate 2.4 H* Calcium 9.4 Magnesium Total Bilirubin 0.5 AST 24 ALT 36 Alkaline Phosphatase 127 H C-Reactive Protein 5.43 H Total Protein 7.8 Albumin 3.5 Globulin 4.3 H Albumin/Globulin Ratio 0.8 L Triglycerides Cholesterol LDL Cholesterol, Calc VLDL Cholesterol, Calc HDL Cholesterol Cholesterol/HDL Ratio 25-OH Vitamin D Total Procalcitonin COVID-19 Eval Order SARS-CoV-2, RNA, NAAT 07/25/20 07/25/20 07/25/20 16:10 16:10 17:45 WBC RBC Hgb Hct MCV MCH MCHC RDW Std Deviation RDW Coeff of Manjeet Plt Count MPV Immature Gran % (Auto) Neut % (Auto) Lymph % (Auto) [place] % (Auto) Eos % (Auto) Baso % (Auto) Neut # (Auto) Lymph # (Auto) [place] # (Auto) Eos # (Auto) Baso # (Auto) Immature Gran # (Auto) ESR 37 H Sodium Potassium Chloride Carbon Dioxide Anion Gap BUN Creatinine Est Cr Clr Drug Dosing Est GFR ( Amer) Est GFR (Non-Af Amer) BUN/Creatinine Ratio Glucose POC Glucose Estimat Average Glucose Hemoglobin A1c Lactate Calcium Magnesium Total Bilirubin AST ALT Alkaline Phosphatase C-Reactive Protein Total Protein Albumin Globulin Albumin/Globulin Ratio Triglycerides Cholesterol LDL Cholesterol, Calc VLDL Cholesterol, Calc HDL Cholesterol Cholesterol/HDL Ratio 25-OH Vitamin D Total Procalcitonin 0.06 COVID-19 Eval [facility] SARS-CoV-2, RNA, NAAT 07/25/20 07/25/20 07/25/20 17:45 17:50 22:06 WBC RBC Hgb Hct MCV MCH MCHC RDW Std Deviation RDW Coeff of Manjeet Plt Count MPV Immature Gran % (Auto) Neut % (Auto) Lymph % (Auto) [place] % (Auto) Eos % (Auto) Baso % (Auto) Neut # (Auto) Lymph # (Auto) [place] # (Auto) Eos # (Auto) Baso # (Auto) Immature Gran # (Auto) ESR Sodium Potassium Chloride Carbon Dioxide Anion Gap BUN Creatinine Est Cr Clr Drug Dosing Est GFR ( Amer) Est GFR (Non-Af Amer) BUN/Creatinine Ratio Glucose POC Glucose 174 H Estimat Average Glucose Hemoglobin A1c Lactate 2.1 H* Calcium Magnesium Total Bilirubin AST ALT Alkaline Phosphatase C-Reactive Protein Total Protein Albumin Globulin Albumin/Globulin Ratio Triglycerides Cholesterol LDL Cholesterol, Calc VLDL Cholesterol, Calc HDL Cholesterol Cholesterol/HDL Ratio 25-OH Vitamin D Total Procalcitonin COVID-19 Eval Order SARS-CoV-2, RNA, NAAT NEGATIVE 07/26/20 07/26/20 07/26/20 05:56 05:56 05:56 WBC 9.03 RBC 4.17 L Hgb 13.2 Hct 39.0 MCV 93.5 MCH 31.7 MCHC 33.8 RDW Std Deviation 47.7 H RDW Coeff of Manjeet 13.9 Plt Count 210 MPV 10.8 H Immature Gran % (Auto) 0.2 Neut % (Auto) 78.7 Lymph % (Auto) 16.1 [place] % (Auto) 4.5 Eos % (Auto) 0.4 Baso % (Auto) 0.1 Neut # (Auto) 7.10 H Lymph # (Auto) 1.45 [place] # (Auto) 0.41 Eos # (Auto) 0.04 Baso # (Auto) 0.01 Immature Gran # (Auto) 0.02 ESR Sodium 135 L Potassium 4.1 Chloride 103 Carbon Dioxide 26 Anion Gap 6.0 BUN 9 Creatinine 0.73 Est Cr Clr Drug Dosing 121.3 Est GFR ( Amer) 110.5 Est GFR (Non-Af Amer) 95.4 BUN/Creatinine Ratio 12.8 Glucose 229 H POC Glucose Estimat Average Glucose 171 Hemoglobin A1c 7.6 H Lactate Calcium 8.5 Magnesium 1.9 Total Bilirubin AST ALT Alkaline Phosphatase C-Reactive Protein Total Protein Albumin Globulin Albumin/Globulin Ratio Triglycerides 200 H Cholesterol 192 LDL Cholesterol, Calc 103 VLDL Cholesterol, Calc 40 HDL Cholesterol 49 Cholesterol/HDL Ratio 4 25-OH Vitamin D Total Procalcitonin COVID-19 Eval Order SARS-CoV-2, RNA, NAAT 07/26/20 07/26/20 07/26/20 05:56 08:08 12:25 WBC RBC Hgb Hct MCV MCH MCHC RDW Std Deviation RDW Coeff of Manjeet Plt Count MPV Immature Gran % (Auto) Neut % (Auto) Lymph % (Auto) [place] % (Auto) Eos % (Auto) Baso % (Auto) Neut # (Auto) Lymph # (Auto) [place] # (Auto) Eos # (Auto) Baso # (Auto) Immature Gran # (Auto) ESR Sodium Potassium Chloride Carbon Dioxide Anion Gap BUN Creatinine Est Cr Clr Drug Dosing Est GFR ( Amer) Est GFR (Non-Af Amer) BUN/Creatinine Ratio Glucose POC Glucose 233 H 171 H Estimat Average Glucose Hemoglobin A1c Lactate Calcium Magnesium Total Bilirubin AST ALT Alkaline Phosphatase C-Reactive Protein Total Protein Albumin Globulin Albumin/Globulin Ratio Triglycerides Cholesterol LDL Cholesterol, Calc VLDL Cholesterol, Calc HDL Cholesterol Cholesterol/HDL Ratio 25-OH Vitamin D Total 18.0 L Procalcitonin COVID-19 Eval Order SARS-CoV-2, RNA, NAAT Medications Administered Current Inpatient Medications Acetaminophen (Acetaminophen 325 Mg Tab) 650 mg PO Q6H PRN PRN Reason: Pain & Pre PT Stop: 08/25/20 01:35 Last Admin: 07/26/20 04:58 Dose: 650 mg Documented by: Dextrose (Dextrose 50% 50 Ml Syringe) 25 - 50 ml IV UD PRN; Protocol PRN Reason: Hypoglycemia Protocol Stop: 08/24/20 21:27 Glucagon (Glucagon For Inj 1 Mg Vial) 1 mg SQ UD PRN; Protocol PRN Reason: Hypoglycemia Protocol Stop: 08/24/20 21:27 Glucose (Glucose 10 Tabs/Tube) 4 - 8 tabs PO UD PRN; Protocol PRN Reason: Hypoglycemia Protocol Stop: 08/24/20 21:27 Glucose (Glucose 40% Gel 15 Gm Tube) 15 - 30 gm PO UD PRN; Protocol PRN Reason: Hypoglycemia Protocol Stop: 08/24/20 21:27 Daptomycin 350 mg/ Syringe 7 mls @ 3.5 mls/min IV Q24H MUSHTAQ; Protocol Stop: 08/02/20 17:59 Piperacillin Sod/Tazobactam (Sod 4.5 gm/ Dextrose) 120 mls @ 30 mls/hr IV Q8H MUSHTAQ; Protocol Stop: 08/01/20 21:59 Last Infusion: 07/26/20 09:50 Dose: Infused Documented by: Insulin Aspart (Insulin Aspart 100 Units/Ml 3 Ml Pen) 0 units SC ACHS [facility] Stop: 08/24/20 21:59 Last Admin: 07/26/20 13:02 Dose: 3 units Documented by: Lisinopril (Lisinopril 20 Mg Tab) 20 mg PO QAM [facility] Stop: 08/25/20 08:59 Last Admin: 07/26/20 08:33 Dose: 20 mg Documented by: Miscellaneous (Carbohydrates For Hypoglycemia ) 15 - 30 gm PO UD PRN PRN Reason: Hypoglycemia Protocol Stop: 08/24/20 21:27 Miscellaneous Information (Daptomycin Consult Active) 1 ea N/A UD PRN PRN Reason: Consult Stop: 08/24/20 17:06 Miscellaneous Information (Piperacill/Tazobac Consult Active) 1 ea N/A UD PRN PRN Reason: Consult Stop: 08/24/20 17:06 Tramadol HCl (Tramadol Hcl 50 Mg Tablet) 100 mg PO Q4H PRN PRN Reason: SEVERE Pain (7,8,9,10) Stop: 08/25/20 01:35 Last Admin: 07/26/20 05:51 Dose: 100 mg Documented by: Tramadol HCl (Tramadol Hcl 50 Mg Tablet) 50 mg PO Q4H PRN PRN Reason: MODERATE Pain (4,5,6) & Pre PT Stop: 08/25/20 01:35 Vitamin D (Cholecalciferol 1,000 Units 25 Mcg Tab) 1,000 units PO QAM MUSHTAQ Stop: 08/25/20 13:14 PG Care Time/CCT Total # of Minutes Spent Total Time Spent with Patient: Total time spent is greater than 50% in coordination of care (as documented) at patient's floor/unit and/or counseling patient: Coding Level of Care Code 20773 Subseq Hosp Care Lvl 2 Diagnoses Diabetic foot ulcer associated with type 2 diabetes mellitus E11.621; L97.509 Vitamin D deficiency E55.9 Hirsutism L68.0 Elevated blood pressure reading R03.0
[2020-07-26] MEDS: CHOLECALCIFEROL 1,000 UNITS 25 MCG TAB PO SCH (17:17)
[2020-07-26] MEDS: DAPTOmycin 350 MG in SYRINGE 0 ML IV SCH (17:57)
[2020-07-27] MEDS: PIPERACILLIN/TAZOBACTAM 4.5 GM in DEXTROSE 5% 100 ML IV SCH ×3 (05:24→21:22)
[2020-07-27 06:53] LABS: Basophils # (auto) 0.01 K/uL (0-0.2); Basophils % (auto) 0.1 %; Eosinophils # (auto) 0.09 K/uL (0-0.5); Eosinophils % (auto) 1.2 %; Hematocrit (blood only) 37.6 % (37-47); Hemoglobin 12.4 g/dL (12.0-16.0); Immature Granulocytes # (auto) 0.02 K/uL (0.00-0.02); Immature Granulocytes % (auto) 0.3 %; Lymphocytes # (auto) 1.94 K/uL (1.2-3.4); Lymphocytes % (auto) 25.8 %; Mean Platelet Volume 10.6 fL (7.4-10.4); Monocytes # (auto) 0.52 K/uL (0.11-0.59); Monocytes % (auto) 6.9 %; Neutrophils # (auto) 4.93 K/uL (1.4-6.5); Neutrophils % (auto) 65.7 %; Platelet Count 204 K/uL (130-400); RDW Coefficient of Variation 14.1 % (11.5-14.5); RDW Standard Deviation 48.6 fL (36.4-46.3); White Blood Count 7.51 K/uL (4.8-10.8)
[2020-07-27 07:33] LABS: Calcium 8.9 mg/dl (8.5-10.1); Creatinine Clr Calc Pharmacy 99.5 ml/min; Potassium 4.1 mmol/L (3.5-5.1)
[2020-07-27] MEDS: lisinopril 20 MG TAB PO SCH (08:21)
[2020-07-27] MEDS: CHOLECALCIFEROL 1,000 UNITS 25 MCG TAB PO SCH (08:21)
[2020-07-27] MEDS: INSULIN ASPART 100 UNITS/ML 3 ML PEN SC SCH ×4 (09:04→21:25)
[2020-07-27] MEDS: ACETAMINOPHEN 325 MG TAB PO PRN ×2 (14:15→21:22)
--- NOTE | 2020-07-27 15:47 | Hospitalist Progress Note ---
Date of Service July 27, 2020 Assessment & Plan (1) Diabetic foot ulcer associated with type 2 diabetes mellitus: Infected diabetic foot ulcer - Continue with Daptomycin and Zosyn for today wound culture with pin point growth, re-incubating will discuss oral antibiotics and follow up with Dr. Ang plan for d/c tomorrow as long as she continues to do well removed dressing, will keep dressing off today as it appears dry incision and drainage performed 07/[address] Ang follow up with podiatry in clinic WBC normal, no fever, ESR and CRP elevated - no overt signs of systemic sepsis. (2) Vitamin D deficiency: No acute needs - Patient only on supplementation during winter months, and skipped supplementation this year due to COVID - Vitamin D level low at 18 place on Vitamin D 3 1000 units qAM repeat level in a few weeks (3) Hirsutism: No acute needs (4) Elevated blood pressure readin/110's, she attributes to stress however, diastolic would not go up with stress will start on lisinopril 20mg daily good response, BP down to 130/81 (5) Type 2 diabetes mellitus: will resume Metformin educator provided her with meter and discussed proper diet, exercise Admission and Anticipated Discharge Date Admission Date: July 25, 2020 Subjective patient doing well, has some pain in 3rd toe as well as space between 4th and 5th toes on right foot took down the dressing, 3rd toe is dark red, tender at the distal portion of the toes, warm but not hot no purulent drainage expressed but the gauze had some dried yellow drainage she is eating well, no fever, ambulating will ask orthotics to get her a diabetic shoe placed a call to speak with Dr. Ang, he is in operating room this afternoon wound cultures with pin point growth, re-incubating blood cultures negative appreciate consult from museum educator Review of Systems Review of Systems: All systems reviewed & are unremarkable except as noted in Subjective Physical Exam Constitutional: WD/WN, vitals as above + overweight; no acute distress Neck: trachea midline, no thyromegaly Respiratory: normal respiratory effort, lungs clear to auscultation Cardiovascular: RRR, no murmur, no edema Gastrointestinal (Abdomen): normal bowel sounds, soft, nontender, no hepatosplenomegaly Musculoskeletal: no cyanosis or clubbing, extremities motor strength 5/5 Skin: + dry skin and + erythema (right 3rd toe, circumferential, tender, warm) Neurologic: patellar DTR's 2+ bilat, sensation intact and PERRL, EOMI, accommodation nl, no face palsy, no dysarthria Psychiatric: A+Ox3, euthymic affect Lymphatic: no cervical or axillary lymphadenopathy Results & Data Results & Data ([facility]) Vital Signs (Past 12 Hours) Vital Signs Temp Pulse Resp BP BP Pulse Ox 07/27/20 15:10 36.4 C L 75 16 130/81 96 07/27/20 07:11 36.3 C L 79 18 143/86 H 97 Laboratory Results Laboratory Results - last 24 hr 07/26/20 07/26/20 07/27/20 17:09 20:31 06:05 WBC 7.51 RBC 4.00 L Hgb 12.4 Hct 37.6 MCV 94.0 MCH 31.0 MCHC 33.0 RDW Std Deviation 48.6 H RDW Coeff of Manjeet 14.1 Plt Count 204 MPV 10.6 H Immature Gran % (Auto) 0.3 Neut % (Auto) 65.7 Lymph % (Auto) 25.8 [place] % (Auto) 6.9 Eos % (Auto) 1.2 Baso % (Auto) 0.1 Neut # (Auto) 4.93 Lymph # (Auto) 1.94 [place] # (Auto) 0.52 Eos # (Auto) 0.09 Baso # (Auto) 0.01 Immature Gran # (Auto) 0.02 Sodium Potassium Chloride Carbon Dioxide Anion Gap BUN Creatinine Est Cr Clr Drug Dosing Est GFR ( Amer) Est GFR (Non-Af Amer) BUN/Creatinine Ratio Glucose POC Glucose 170 H 155 H Calcium Magnesium 07/27/20 07/27/20 07/27/20 06:05 08:05 12:03 WBC RBC Hgb Hct MCV MCH MCHC RDW Std Deviation RDW Coeff of Manjeet Plt Count MPV Immature Gran % (Auto) Neut % (Auto) Lymph % (Auto) [place] % (Auto) Eos % (Auto) Baso % (Auto) Neut # (Auto) Lymph # (Auto) [place] # (Auto) Eos # (Auto) Baso # (Auto) Immature Gran # (Auto) Sodium 133 L Potassium 4.1 Chloride 102 Carbon Dioxide 24 Anion Gap 8.0 BUN 14 D Creatinine 0.89 Est Cr Clr Drug Dosing 99.5 Est GFR ( Amer) 87.0 Est GFR (Non-Af Amer) 75.0 BUN/Creatinine Ratio 16.0 Glucose 179 H POC Glucose 183 H 160 H Calcium 8.9 Magnesium 2.0 Medications Administered Current Inpatient Medications Acetaminophen (Acetaminophen 325 Mg Tab) 650 mg PO Q6H PRN PRN Reason: Pain & Pre PT Stop: 08/25/20 01:35 Last Admin: 07/27/20 14:15 Dose: 650 mg Documented by: Dextrose (Dextrose 50% 50 Ml Syringe) 25 - 50 ml IV UD PRN; Protocol PRN Reason: Hypoglycemia Protocol Stop: 08/24/20 21:27 Glucagon (Glucagon For Inj 1 Mg Vial) 1 mg SQ UD PRN; Protocol PRN Reason: Hypoglycemia Protocol Stop: 08/24/20 21:27 Glucose (Glucose 10 Tabs/Tube) 4 - 8 tabs PO UD PRN; Protocol PRN Reason: Hypoglycemia Protocol Stop: 08/24/20 21:27 Glucose (Glucose 40% Gel 15 Gm Tube) 15 - 30 gm PO UD PRN; Protocol PRN Reason: Hypoglycemia Protocol Stop: 08/24/20 21:27 Daptomycin 350 mg/ Syringe 7 mls @ 3.5 mls/min IV Q24H MUSHTAQ; Protocol Stop: 08/02/20 17:59 Last Admin: 07/26/20 17:57 Dose: 3.5 mls/min Documented by: Piperacillin Sod/Tazobactam (Sod 4.5 gm/ Dextrose) 120 mls @ 30 mls/hr IV Q8H MUSHTAQ; Protocol Stop: 08/01/20 21:59 Last Admin: 07/27/20 14:15 Dose: 30 mls/hr Documented by: Insulin Aspart (Insulin Aspart 100 Units/Ml 3 Ml Pen) 0 units SC ACHS [facility] Stop: 08/24/20 21:59 Last Admin: 07/27/20 12:20 Dose: 1 units Documented by: Lisinopril (Lisinopril 20 Mg Tab) 20 mg PO QAM [facility] Stop: 08/25/20 08:59 Last Admin: 07/27/20 08:21 Dose: 20 mg Documented by: Miscellaneous (Carbohydrates For Hypoglycemia ) 15 - 30 gm PO UD PRN PRN Reason: Hypoglycemia Protocol Stop: 08/24/20 21:27 Miscellaneous Information (Daptomycin Consult Active) 1 ea N/A UD PRN PRN Reason: Consult Stop: 08/24/20 17:06 Miscellaneous Information (Piperacill/Tazobac Consult Active) 1 ea N/A UD PRN PRN Reason: Consult Stop: 08/24/20 17:06 Tramadol HCl (Tramadol Hcl 50 Mg Tablet) 100 mg PO Q4H PRN PRN Reason: SEVERE Pain (7,8,9,10) Stop: 08/25/20 01:35 Last Admin: 07/26/20 21:27 Dose: 100 mg Documented by: Tramadol HCl (Tramadol Hcl 50 Mg Tablet) 50 mg PO Q4H PRN PRN Reason: MODERATE Pain (4,5,6) & Pre PT Stop: 08/25/20 01:35 Vitamin D (Cholecalciferol 1,000 Units 25 Mcg Tab) 1,000 units PO QAM [facility] Stop: 08/25/20 13:14 Last Admin: 07/27/20 08:21 Dose: 1,000 units Documented by: PG Care Time/CCT Total # of Minutes Spent Total Time Spent with Patient: Total time spent is greater than 50% in coordination of care (as documented) at patient's floor/unit and/or counseling patient: Coding Level of Care Code 03876 Subseq Hosp Care Lvl 3 Diagnoses Diabetic foot ulcer associated with type 2 diabetes mellitus E11.621; L97.509 Vitamin D deficiency E55.9 Hirsutism L68.0 Elevated blood pressure reading R03.0 Type 2 diabetes mellitus E11.9 Diabetes mellitus jail insulin use: without jail use Diabetes mellitus complication status: with skin complications (1) Type 2 diabetes mellitus Diabetes mellitus gas pumper insulin use: without gas pumper use Diabetes mellitus complication status: with skin complications
[2020-07-27] MEDS: DAPTOmycin 350 MG in SYRINGE 0 ML IV SCH (18:13)
--- NOTE | 2020-07-27 20:34 | Podiatry Consultation ---
Date of Consultation July 27, 2020 Assessment & Plan (1) Cellulitis of toe of right foot: Patient seen, evaluated, and treated Reviewed Labs showing Pin-point growth present, reincubating.. MRI ordered r/o osteomyelitis Thank you for allowing me to participate in the care of this Patient Dr. Ang cell [phone] Present on Admission?: Yes History of Present Illness Attending Physician: Dimitri Canales, DO History of Present Illness Patient seen at bedside resting comfortably in no acute distress. She relates pain in right foot has lessened considerably and relates 3/10 pain. Patient has no other complaints. Allergies Allergy/AdvReac Type Severity Reaction Status Date / Time No Known Drug Allergies Allergy Unknown Verified 07/25/20 16:55 Home Medications Medication Instructions Recorded Confirmed Type No Known Home Medications 07/25/20 07/25/20 History Patient History Medical History Type 2 diabetes mellitus Surgical History History of conization of cervix Status post hysteroscopic ablation of endometrium Family History Mother Dyslipidemia Heart disease Hypertension Father Dyslipidemia Heart disease Hypertension Myocardial infarction Other Breast cancer Colorectal cancer Depression Diabetes Denies family history of Ovarian cancer Social History Smoking Status: Never smoker Hx Alcohol Use: No Hx Substance Use: No Preferred Language: Citizen Of [place] Communication Ability: Effective Chipper Feeder Required: No Beliefs That Will Affect Care: None marital status: Current Living Situation: Spouse current occupational status: employed Feels Safe at Home: Yes Safety Concerns: Feels Safe At This Time caffeine: Yes during the past year weight has: remained stable Dental Care, Regularly: No Seatbelt Use: always Sunscreen Use: Yes Assistive Devices: None Review of Systems Constitutional: as per Subjective / HPI Eyes: as per Subjective / HPI Ear, Nose, Mouth, Throat: as per Subjective / HPI Respiratory: as per Subjective / HPI Cardiovascular: as per Subjective / HPI Gastrointestinal: as per Subjective / HPI Genitourinary: as per Subjective / HPI Musculoskeletal: as per Subjective / HPI Integumentary: + skin ulcer Neurologic: + numbness Psychiatric: as per Subjective / HPI Endocrine: as per Subjective / HPI Hematologic / Lymphatic: as per Subjective / HPI Allergy / Immunological: as per Subjective / HPI Physical Exam Physical Exam: Vascu: pedal pulses palpable. 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 RIght third toe edema and erythema MSK: hammertoe deformities bilateral lesser toes. Pain on palpation to left third toe Integument: Distal third right digit ulcer with communicating medial anterior ulcer at distal phalangeal joint with purulence evident. Constitutional: patient denies symptoms Pysch: Normal affect and demeanor Neuro: Epicritic sensation diminished Constitutional: WD/WN, vitals as above well developed and well nourished Eyes: PERRL, conjunctivae normal, anicteric sclerae ENMT: external ear and nose normal, oropharynx normal Neck: trachea midline, no thyromegaly Respiratory: normal respiratory effort Cardiovascular: RRR, no murmur, no edema Gastrointestinal (Abdomen): normal bowel sounds, soft, nontender, no hepatosplenomegaly Musculoskeletal: no cyanosis or clubbing, extremities motor strength 5/5 Skin: + ulcer Neurologic: Motor/Sensory: + sensory deficit Psychiatric: Orientation: oriented x 3 Results & Data ([facility]) Vital Signs (Past 12 Hours) Vital Signs Temp Pulse Resp BP Pulse Ox 07/27/20 15:10 36.4 C L 75 16 130/81 96
[2020-07-27] MEDS ORDERED: GADOBUTROL 65ML VIAL IV ONE (22:21)
[2020-07-28] MEDS: PIPERACILLIN/TAZOBACTAM 4.5 GM in DEXTROSE 5% 100 ML IV SCH ×2 (05:52→13:30)
[2020-07-28 06:42] LABS: Basophils # (auto) 0.02 K/uL (0-0.2); Basophils % (auto) 0.3 %; Eosinophils % (auto) 1.5 %; Hematocrit (blood only) 38.5 % (37-47); Hemoglobin 12.8 g/dL (12.0-16.0); Immature Granulocytes # (auto) 0.02 K/uL (0.00-0.02); Immature Granulocytes % (auto) 0.3 %; Lymphocytes # (auto) 2.06 K/uL (1.2-3.4); Lymphocytes % (auto) 30.5 %; Mean Corpuscular Hemoglobin 31.4 pg (25-34); Mean Corpuscular Hgb Conc 33.2 g/dL (32-36); Mean Corpuscular Volume 94.4 fL (80-100); Mean Platelet Volume 10.6 fL (7.4-10.4); Monocytes # (auto) 0.37 K/uL (0.11-0.59); Monocytes % (auto) 5.5 %; Neutrophils # (auto) 4.19 K/uL (1.4-6.5); Neutrophils % (auto) 61.9 %; Platelet Count 222 K/uL (130-400); RDW Standard Deviation 48.2 fL (36.4-46.3); Red Blood Count 4.08 M/uL (4.2-5.4); White Blood Count 6.76 K/uL (4.8-10.8)
[2020-07-28 07:14] LABS: BUN Creatinine Ratio 13.6 (10-20); Calcium 9.1 mg/dl (8.5-10.1); Creatinine Clr Calc Pharmacy 105.4 ml/min; Est GFR (African American) 93.3; Est GFR (Non-African American) 80.5; Magnesium 2.1 mg/dl (1.8-2.4); Potassium 4.2 mmol/L (3.5-5.1)
--- NOTE | 2020-07-28 08:27 | Magnetic Resonance Report ---
MR foot RT wo/w con HISTORY: Right third toe swelling. Infection. rule out osteomyelitis RIght third toe TECHNIQUE: Multiplanar multisequence MRI of the right forefoot was performed both before and after th e intravenous administration of 12 cc of Gadavist contrast. COMPARISON STUDY: Right third toe radiograph 07/25/2020. FINDINGS: Soft tissue thickening, edema, and enhancement within the third toe with an overlying skin marker. This likely represents a cellulitis. There is marrow edema within the distal phalanx of the t hird toe with relative preservation of marrow fat on T1 sequences. No areas of cortical destruction i dentified. Evaluation for enhancement within the distal phalanx of the third toe is obscured by artif act. No abscess or mass. There is dorsal subcutaneous edema within the forefoot. IMPRESSION: 1. Marrow edema within the distal phalanx of the right third toe without definite bony destruction to suggest osteomyelitis. This favors reactive edema or an osteitis. Evaluation for enhancement within the osseous structures of the distal third toe are obscured by artifact. 2. Edema and enhancement within the soft tissues of the right third toe consistent with a cellulitis. No abscess identified. ACT 112: Negative or not required by law. Electronically signed by: Paddy Yoder M.D. 07/28/2020 8:26 AM
[2020-07-28] MEDS: CHOLECALCIFEROL 1,000 UNITS 25 MCG TAB PO SCH (08:57)
[2020-07-28] MEDS: lisinopril 20 MG TAB PO SCH (08:57)
[2020-07-28] MEDS: INSULIN ASPART 100 UNITS/ML 3 ML PEN SC SCH ×2 (09:04→12:41)
--- NOTE | 2020-07-28 12:02 | Discharge Summary ---
Date of Service July 28, 2020 Admission HPI Per Admitting Provider 49 YOF with past medical history of strep pharyngitis, Hirsutism, Vit D deficiency, DMII, hemorrhoids. Patient comes to the emergency room for right 3rd toe infection. Patient states that about 6 weeks ago she noted that her toenail was grown over and digging into the top of her toe and created an ulcer, she clipped the toenail and the ulcer. On Sun, she noted that her toe started to get red and painful over the ulceration, the redness and swelling to the toe increased and stared to track caudally yesterday. She went to [facility] had X-ray performed and was given oral antibiotics (doxy and Augmentin). She denies fevers or chills or other symptoms of systemic infection. The redness tracks to about ankle and is just center of the foot. The 3rd toe itself is moderately erythematous but only painful over the ulceration and when putting pressure directly on it. Patient will be brought in for IV antibiotics, blood culture and biomarkers. Principal Diagnosis Diabetic foot/toe ulcer, hammer toe, 3rd toe right foot Discharge Exam Constitutional WD/WN, vitals as above + overweight; no acute distress Neck trachea midline, no thyromegaly Respiratory normal respiratory effort, lungs clear to auscultation Cardiovascular RRR, no murmur, no edema Gastrointestinal (Abdomen) normal bowel sounds, soft, nontender, no hepatosplenomegaly Musculoskeletal no cyanosis or clubbing, extremities motor strength 5/5 Skin + dry skin and + erythema (right 3rd toe, circumferential, tender, warm) Neurologic patellar DTR's 2+ bilat, sensation intact and PERRL, EOMI, accommodation nl, no face palsy, no dysarthria Psychiatric A+Ox3, euthymic affect Lymphatic no cervical or axillary lymphadenopathy Discharge Data Allergies Allergy/AdvReac Type Severity Reaction Status Date / Time No Known Drug Allergies Allergy Unknown Verified 07/25/20 16:55 Consultations 07/25/20 17:29 ED Decision to Admit Stat Ordered Studies 07/27/20 21:09 MR foot RT wo/w con Urgent Hospital Course (1) Diabetic foot ulcer associated with type 2 diabetes mellitus: Infected diabetic foot ulcer - treated with Daptomycin and Zosyn since admission wound culture with pin point growth, re-incubating -- grew out GROUP G STREPTOCOCCUS should be sensitive to penicillins will discharge on Augmentin BID x 14 more days MRI foot with no signs of osteomyelitis, only cellulitis continue gauze dressing on 2nd and 5th toes diabetic orthotic shoe arranged incision and drainage performed 07/[address] Ang follow up with podiatry in clinic in 1-2 weeks WBC normal, no fever, ESR and CRP elevated - no overt signs of systemic sepsis (2) Cellulitis: cellulitis of 3rd toe right foot culture from ulcer grew out Group G strep treated with Daptomycin and Zosyn initially change to Augmentin BID x 14 days (3) Vitamin D deficiency: No acute needs - Patient only on supplementation during winter months, and skipped supplementation this year due to COVID - Vitamin D level low at 18 place on Vitamin D 3 1000 units qAM, continue on discharge repeat level in a few weeks with PCP (4) Hirsutism: No acute needs (5) Elevated blood pressure readin/110's, she attributes to stress however, diastolic would not go up with stress will start on lisinopril 20mg daily good response, BP down to 130/81 she has essential hypertension, continue lisinopril 20mg daily, check BP in the office this will offer her renal protection with diabetes (6) Type 2 diabetes mellitus: will resume Metformin 500mg BID on discharge educator provided her with meter and discussed proper diet, exercise will check sugars once a day, follow up with PCP she is motivated to eat well and lose weight Total Time Total Time Spent Total Time Spent (In Minutes): 40 minutes Total Time Includes: Examination of the Patient, Discharge Planning, Medication Reconciliation and Communication With Other Providers (Dr. Ang) Discharge Plan Discharge Items Patient Disposition: Home - Self-Care Reason For Visit: DIABETIC FOOT ULCER Discharge Diagnosis: Diabetic ulcer 3rd toe, right diabetes Condition on Discharge: Good Goals: complete course of Augmentin follow up with podiatry, Dr. Ang Activity: Per Instructions section Activity Comment: walk with diabetic shoe to offload toe Bathing Comment: may shower, do NOT soak foot in tub Non-emergency contact: Primary Care Provider and Surgeon Call non-emergency contact if: you have any medication questions, your symptoms worsen, your pain is not controlled and you have a fever Follow-up/Referrals: Krystal Cabrales CRNP [Primary Care Provider] - 08/05/20 10:30 am (one week) Adeel Ang, [place], [place] [Physician] - 08/06/20 8:00 am (7-10 days APPT [facility] [place]. GO TO HOSPITAL, 3RD FLOOR. *PLEASE BRING INSURANCE CARD TO VISIT; WEAR A MASK, YOU CAN BRING ONE PERSON TO VISIT THAT IS 18 YRS OLD OR OLDER, THEY ALSO NEED TO WEAR A MASK.) Diet: Carb Consistent or DM2 Addtl Attending Provider Instructions: Medications: several new medications for diabetes, hypertension and to treat infection - AUGMENTIN: take twice a day, start this evening, take for 14 days, do not stop early, need to completely treat infection - LISINOPRIL: 20mg daily in the morning, blood pressure medication, it has been working very well while here - METFORMIN: take 500mg daily for the first 7 days then increase to 500mg twice a day - ULTRAM: use as needed for any pain with toe - VITAMIN D: take 1000 units daily, vitamin D level was quite low at 18 scripts for test strips and lancets provided Diabetic food ulcer, hammer toe deformity of 3rd toe on right Dr. Ang performed incision and drainage at the distal site, expressed purulent drainage culture grew out Group G streptococcus, sensitive to penicillins you were on Daptomycin and Zosyn while here, change to Augmentin on discharge, continue for two more weeks wrap gauze around 2nd and 5th toes for the next week and then as needed, change once a day use diabetic shoe to help offload the hammer toe MRI of the foot showed NO evidence of osteomyelitis follow up with Dr. Ang in 7-10 days, call his office if you have increased pain, fever/chills, if the skin starts to look worse diabetes resume Metformin that you used to take follow low carbohydrate diet, remember the simple rule that a plate of food, half should be vegetables, 1/4 is protein, 1/4 is carbs avoid sweets by decreasing calories you can lose 10-15% of body weight which will help control sugars even more check sugars one time a day hypertension (high blood pressure) your readings were consistently high, you talked about recent stress which can play a role but your diastolic pressures were elevated (this is the bottom number) which does not change with stress, suggests true hypertension you responded great to Lisinopril 20mg daily which will also provide kidney protection with diabetes major side effect of lisinopril is a dry cough so if you experience this in the next few weeks let Krystal Cabrales know Pending Studies at Discharge: No Stand-Alone Forms: My [facility] Medications and DC Order Prescriptions: New lisinopril 20 mg Tablet 20 mg PO QAM 30 Days Qty: 30 RF: 3 tramadol 50 mg Tablet 50 mg PO Q4H PRN (Reason: pain) 10 Days Qty: 30 RF: 0 cholecalciferol (vitamin D3) 25 mcg (1,000 unit) Capsule 1,000 unit PO QAM 30 Days Qty: 30 RF: 3 amoxicillin-pot clavulanate [Augmentin] 875-125 mg tablet 1 tab PO BID 14 Days Qty: 28 RF: 0 metformin 500 mg tablet 500 mg PO BID Qty: 60 RF: 3 (DME) OneTouch Verio test strips Strip See Rx Instructions .ROUTE .MEDSUPPLY Qty: 25 RF: 3 (DME) lancets [OneTouch Delica Lancets] 33 gauge misc See Rx Instructions .ROUTE .MEDSUPPLY Qty: 100 RF: 2 No Action No Known Home Medications RF: 0 Discharge Orders: Discharge Order (Routine); Ordered 07/28/20 Ordered By: Dimitri Lombardi/Other Patient Handouts: High Blood Sugar (Hyperglycemia), Hypoglycemia (Low Blood Sugar), Managing Type 2 Diabetes, Diabetes: Keeping Feet Healthy, 5 Steps for Eating Healthier, Hyperglycemia Steps, Tramadol tablets, Metformin ta blets, Amoxicillin Clavulanic Acid tablets, Lisinopril tablets Admission Data Admit Date/Time: 07/25/20 19:34 Attending Provider: Dimitri Canales Admit Provider: Parker De La O Primary Care Provider: Krystal Cabrales Other Providers: Parker De La O Other Interventions: Discharge Summary Assessment (RN) Last Done: 07/28/20 13:13 Coding Level of Care Code D/C Day Management >30 mins Diagnoses Diabetic foot ulcer associated with type 2 diabetes mellitus E11.621; L97.509 Cellulitis L03.90 Vitamin D deficiency E55.9 Hirsutism L68.0 Elevated blood pressure reading R03.0 Type 2 diabetes mellitus E11.9 Diabetes mellitus complication status: with skin complications Diabetes mellitus mcfp insulin use: without mcfp use
--- NOTE | 2020-08-06 08:33 | Coding Query ---
DEBRIDEMENT DOCUMENTATION To promote full compliance with coding requirements relating to patient care, physician participation is requested in all cases of agility instructor uncertainty. Please assist us with the question(s) below: Please clarify the Depth of the Excisional Debridement below: Depth of Debridement: ( ) Skin ( ) Skin and Subcutaneous Tissue ( ) Skin, Subcutaneous Tissue and Muscle ( ) Skin, Subcutaneous Tissue, Muscle and Bone ( ) Other (please specify): Thank you Wong COY
--- NOTE | 2020-10-08 08:54 | Coding Query ---
CODING QUERY To promote full compliance with coding requirements relating to patient care, provider participation is requested in all cases of concrete placement equipment operator uncertainty. Please assist us with the question(s) below: Coding Question(s): Per your consultation, an excisional debridement was performed. Today's procedure is an excisional debridement of deep tissue, incision and drainage at bedside. There is a minimal amount of purulence and serosanguineous exudate draining from the right foot 3rd toe ulcer. The ulcer base is described as containing devitalized tissue. Necrotic or devitalized tissue is estimated to be present in approximately 40% of the ulcer bed. The ulcer has exposed full-thickness tissue in to muscle. I have informed the patient of the risks and benefit of this incision and drainage, debridement procedure. Appropriate consent has been obtained. The patient refused site marking. The area was prepped and draped in usual aseptic manner. The procedure was performed and a clean field. I debrided the right foot wound sharply with a sterile #15 blade and necrotic tissue was excised. Bleeding was minimal and hemostasis was achieved using pressure. Utilizing a sharp, sterile, #15 blade a plantar skin incision was created. Purulence was expelled from this incisional wound. Deep cultures were obtained. Normal saline was used to flush wound. The wounds were packed with iodoform and saline moistened 4x4 gauze followed by dry, sterile, dressing consisting of 4x4, and Kerlix. The patient tolerated procedure and anesthesia well. Postprocedure no increased pain. Based on the procedure documented above, please answer the following questions: 1.) Depth of Debridement (eg skin, subcutaneous, fascia, muscle, etc.) 2.) Total Size of debrided area: Thank you Wong Sahu Principal Diagnosis: "that condition established after study, to be chiefly responsible for occasioning the admission of the patient to the hospital for care." Co-Existing Principal Diagnosis: "when two or more diagnoses equally meet the criteria for principal diagnosis as determined by the circumstances of admission, diagnostic work up, and/or therapy provided, and the Alphabetic Index, Tabular List, or another coding guideline does not provide sequencing direction, any one of the diagnoses may be sequenced first." "When the physician has documented what appears to be a current diagnosis in the body of the record, but has not included the diagnosis in the final diagnostic statement, the physician should be asked whether the diagnosis should be added." (Source Coding [facility] 2 QTR90. p3-4) ANNELIESE
== END 2020-07-28 14:45 | disposition home or self-care (01) | DRG 639 ==
LOC: ED 15:36 → 3W 19:34 → SUATTDRO 19:34 → 3W 20:45
DX: L03.031 Cellulitis of right toe; E11.621 Type 2 diabetes mellitus with foot ulcer; M20.41 Other hammer toe(s) (acquired), right foot; L97.519 Non-pressure chronic ulcer of other part of right foot with unspecified severity; E55.9 Vitamin D deficiency, unspecified; I10 Essential (primary) hypertension; B95.5 Unspecified streptococcus as the cause of diseases classified elsewhere; Z91.19 Patient's noncompliance with other medical treatment and regimen